=== PATIENT | male | born 1950 | race Caucasian/White ===

== ENCOUNTER 2021-01-11 07:51 | Day surgery (SDC) | payer OTHER, SELFPAY ==
[~2021-01-11] VITALS: Ht 172 cm; Wt 93.0 kg
[2021-01-11] MEDS ORDERED: SIMETHICONE 40 MG/0.6 ML ML ONE (08:11)
[2021-01-11] MEDS: MIDAZOLAM HCL 5 MG/5 ML VIAL ONE ×4 (09:57→10:12)
[2021-01-11] MEDS: MEPERIDINE 100 MG INJ. 100 MG/ML VIAL ONE ×3 (09:57→10:16)
[2021-01-11] MEDS ORDERED: MIDAZOLAM HCL 5 MG/5 ML VIAL ONE (10:26)
[2021-01-11 13:25] VITALS: BP_SYST 136
== END 2021-01-11 12:30 | disposition home or self-care (01) ==
LOC: SDS 07:51 → SMU 07:53 → SDS 12:30
PROVIDERS: ATTEND Internal Medicine Gastroenterology
DX: Z12.11 Encounter for screening for malignant neoplasm of colon (principal); D12.3 Benign neoplasm of transverse colon; D12.4 Benign neoplasm of descending colon; K44.9 Diaphragmatic hernia without obstruction or gangrene; K64.8 Other hemorrhoids; Z20.822 Contact with and (suspected) exposure to COVID-19; Z79.899 Other long term (current) drug therapy
CPT/HCPCS: 45385; 88305; 99152; 99153; G0378; J2175; J2250; U0003